=== PATIENT | male | born 1930 | race Caucasian/White ===

== ENCOUNTER 2020-07-17 21:40 | Inpatient (IN) ==
[2020-07-18] MEDS ORDERED: ACETAMINOPHEN 325 MG TABLET PO PRN (00:15)
[2020-07-18] MEDS ORDERED: GLUCAGON 1 MG VIAL IM PRN ×2 (00:15→00:35)
[2020-07-18] MEDS ORDERED: DEXTROSE 50% 25 GM/50 ML VIAL IV PRN ×2 (00:15→00:35)
[2020-07-18] MEDS ORDERED: ONDANSETRON 4 MG/2 ML VIAL IV PRN (00:15)
[2020-07-18] MEDS ORDERED: MORPHINE 4 MG/1 ML VIAL IV PRN (00:19)
[2020-07-18] MEDS: MEROPENEM 500 MG in SODIUM CHLORIDE 0.9% 100 ML IV SCH ×3 (01:42→17:39)
[2020-07-18] MEDS: SODIUM CHLORIDE 0.9% 1,000 ML IV SCH (01:42)
[2020-07-18] MEDS: dilTIAZem Drip 125 MG/125 ML PREMIX IV SCH (06:16)
[2020-07-18 06:17] LABS: Basophils % 0.1 % (0.0-0.8); Hematocrit 38.6 VOL% (42.0-52.0); Hemoglobin 12.3 GM/DL (14.0-18.0); Immature Granulocytes % 0.5 %; Immature Granulocytes Absolute 0.09 #; Lymphocytes # 0.6 10*3/uL (1.4-4.0); Lymphocytes % 3.2 % (21.2-54.2); Mean Corpuscular HGB Conc 31.9 GM/DL (32-36); Mean Corpuscular Volume 85.8 FL (87-102); Mean Platelet Volume 11.1 FL (9.6-12.0); Monocytes % 5.6 % (1.7-12.7); Neutrophils % 90.6 % (38.7-73.9); Platelet Count 133 T/CUMM (130-400); Red Cell Distribution Width 15.5 % (9.3-17.3); White Blood Count 18.3 T/CUMM (4-12)
[2020-07-18 06:25] LABS: PT Patient Result 21.1 SECS (9.8-11.9)
[2020-07-18 06:39] LABS: Risk Ratio 1.8; VLDL CHOLESTEROL 13.2 MG/DL
[2020-07-18 06:40] LABS: Band Neutrophils 6 % (0-10); Hypochromasia 1+; Lymphocytes 4 % (20-55); Microcytosis 1+; Platelet Estimate Adequate; Segmented Neutrophils 81 % (50-85); Total Cells Counted 100
[2020-07-18 06:45] LABS: Albumin 3.3 G/DL (3.4-5.0); Bilirubin,Total 0.4 MG/DL (0.2-1.0); Calcium 8.6 MG/DL (8.5-10.1); Osmolality,Calculated 277.8 MOS/KG (273-304); Total Protein 6.7 G/DL (6.4-8.3)
[2020-07-18] MEDS: INSULIN REGULAR 100 UNIT/ML SUBCUT SCH ×4 (08:52→21:01)
[2020-07-18] MEDS: ATORVASTATIN 40 MG TABLET PO SCH (09:39)
[2020-07-18] MEDS: METOPROLOL SUCCINATE XL 50 MG TABLET PO SCH (09:39)
[2020-07-18] MEDS: TAMSULOSIN 0.4 MG CAPSULE PO SCH (09:39)
[2020-07-18] MEDS: ASPIRIN EC 81 MG TABLET PO SCH (09:39)
[2020-07-18] MEDS: PANTOPRAZOLE 40 MG TABLET PO SCH (09:39)
[2020-07-18] MEDS: WARFARIN 5 MG TABLET PO SCH (17:32)
[2020-07-19] MEDS: MEROPENEM 500 MG in SODIUM CHLORIDE 0.9% 100 ML IV SCH ×3 (03:29→17:42)
[2020-07-19] MEDS: dilTIAZem Drip 125 MG/125 ML PREMIX IV SCH (04:21)
[2020-07-19 05:26] LABS: INR 1.6; PT Patient Result 17.2 SECS (9.8-11.9)
[2020-07-19 05:32] LABS: Calcium 7.2 MG/DL (8.5-10.1)
[2020-07-19 06:16] LABS: Basophils % 0.3 % (0.0-0.8); Eosinophils % 0.1 % (0.00-10.9); Hematocrit 35.2 VOL% (42.0-52.0); Hemoglobin 11.4 GM/DL (14.0-18.0); Immature Granulocytes % 0.3 %; Immature Granulocytes Absolute 0.03 #; Lymphocytes # 0.7 10*3/uL (1.4-4.0); Lymphocytes % 6.5 % (21.2-54.2); Mean Corpuscular HGB Conc 32.4 GM/DL (32-36); Mean Corpuscular Volume 85.2 FL (87-102); Mean Platelet Volume 10.7 FL (9.6-12.0); Monocytes % 12.1 % (1.7-12.7); Neutrophils % 80.7 % (38.7-73.9); Red Blood Count 4.13 MC/CUMM (3.8-5.5); Red Cell Distribution Width 15.7 % (9.3-17.3)
[2020-07-19 06:17] LABS: Platelet Count 100 T/CUMM (130-400); White Blood Count 10.3 T/CUMM (4-12)
[2020-07-19] MEDS ORDERED: POTASSIUM CHLORIDE RIDER 10 MEQ in PREMIX 1 EACH IV SCH (07:30)
[2020-07-19] MEDS ORDERED: POTASSIUM CHLORIDE 20 MEQ TABLET PO ONE (08:40)
[2020-07-19] MEDS: INSULIN REGULAR 100 UNIT/ML SUBCUT SCH ×4 (08:55→22:22)
[2020-07-19] MEDS: LACTATED RINGERS 1,000 ML IV SCH (09:21)
[2020-07-19] MEDS ORDERED: ETOMIDATE 20 MG/10 ML VIAL IV ONE (10:06)
[2020-07-19] MEDS ORDERED: LIDOCAINE 2% 5 ML VIAL ONE (10:06)
[2020-07-19] MEDS: SODIUM CHLORIDE 0.9% 1,000 ML IV SCH ×3 (12:42→16:39)
[2020-07-19] MEDS: ATORVASTATIN 40 MG TABLET PO SCH (12:57)
[2020-07-19] MEDS: ASPIRIN EC 81 MG TABLET PO SCH (12:57)
[2020-07-19] MEDS: PANTOPRAZOLE 40 MG TABLET PO SCH (12:57)
[2020-07-19] MEDS: TAMSULOSIN 0.4 MG CAPSULE PO SCH (12:58)
[2020-07-19] MEDS: METOPROLOL SUCCINATE XL 50 MG TABLET PO SCH (12:58)
[2020-07-20] MEDS: MEROPENEM 500 MG in SODIUM CHLORIDE 0.9% 100 ML IV SCH ×3 (03:30→17:38)
[2020-07-20 06:40] LABS: Basophils % 0.3 % (0.0-0.8); Eosinophils % 0.2 % (0.00-10.9); Hemoglobin 11.4 GM/DL (14.0-18.0); Immature Granulocytes % 0.6 %; Immature Granulocytes Absolute 0.05 #; Lymphocytes # 0.7 10*3/uL (1.4-4.0); Lymphocytes % 7.5 % (21.2-54.2); Mean Corpuscular HGB Conc 32.6 GM/DL (32-36); Mean Corpuscular Volume 84.5 FL (87-102); Mean Platelet Volume 11.4 FL (9.6-12.0); Monocytes % 12.3 % (1.7-12.7); Neutrophils % 79.1 % (38.7-73.9); Platelet Count 108 T/CUMM (130-400); Red Blood Count 4.14 MC/CUMM (3.8-5.5); Red Cell Distribution Width 15.2 % (9.3-17.3); White Blood Count 8.9 T/CUMM (4-12)
[2020-07-20 06:56] LABS: Calcium 8.5 MG/DL (8.5-10.1)
[2020-07-20 07:00] LABS: INR 1.2; PT Patient Result 13.1 SECS (9.8-11.9)
[2020-07-20] MEDS: TAMSULOSIN 0.4 MG CAPSULE PO SCH (09:03)
[2020-07-20] MEDS: PANTOPRAZOLE 40 MG TABLET PO SCH (09:03)
[2020-07-20] MEDS: ASPIRIN EC 81 MG TABLET PO SCH (09:03)
[2020-07-20] MEDS: ATORVASTATIN 40 MG TABLET PO SCH (09:03)
[2020-07-20] MEDS: METOPROLOL SUCCINATE XL 50 MG TABLET PO SCH (09:03)
[2020-07-20] MEDS: SODIUM CHLORIDE 0.9% 1,000 ML IV SCH ×2 (09:09→13:04)
[2020-07-20] MEDS: INSULIN REGULAR 100 UNIT/ML SUBCUT SCH ×4 (09:09→21:00)
[2020-07-20] MEDS: LACTATED RINGERS 1,000 ML IV SCH (09:09)
[2020-07-20] MEDS: WARFARIN 5 MG TABLET PO SCH (17:38)
[2020-07-21] MEDS: MEROPENEM 500 MG in SODIUM CHLORIDE 0.9% 100 ML IV SCH ×3 (02:41→10:27)
[2020-07-21 06:06] LABS: Basophils % 0.4 % (0.0-0.8); Eosinophils # 0.1 10*3/uL (0.0-0.87); Eosinophils % 0.9 % (0.00-10.9); Hematocrit 36.4 VOL% (42.0-52.0); Hemoglobin 11.8 GM/DL (14.0-18.0); Immature Granulocytes % 0.4 %; Immature Granulocytes Absolute 0.03 #; Lymphocytes # 0.7 10*3/uL (1.4-4.0); Lymphocytes % 9.3 % (21.2-54.2); Mean Corpuscular HGB Conc 32.4 GM/DL (32-36); Mean Corpuscular Volume 84.3 FL (87-102); Mean Platelet Volume 11.5 FL (9.6-12.0); Monocytes % 11.1 % (1.7-12.7); Neutrophils % 77.9 % (38.7-73.9); Platelet Count 121 T/CUMM (130-400); Red Blood Count 4.32 MC/CUMM (3.8-5.5); Red Cell Distribution Width 14.9 % (9.3-17.3); White Blood Count 7.8 T/CUMM (4-12)
[2020-07-21 06:40] LABS: Albumin 2.9 G/DL (3.4-5.0); Bilirubin,Total 0.8 MG/DL (0.2-1.0); Calcium 8.3 MG/DL (8.5-10.1); Osmolality,Calculated 279.8 MOS/KG (273-304); Total Protein 6.5 G/DL (6.4-8.3)
[2020-07-21 06:47] LABS: INR 1.1
[2020-07-21 07:34] LABS: Anisocytosis 1+; Platelet Estimate Adequate
[2020-07-21] MEDS: PANTOPRAZOLE 40 MG TABLET PO SCH (08:22)
[2020-07-21] MEDS: METOPROLOL SUCCINATE XL 50 MG TABLET PO SCH (08:22)
[2020-07-21] MEDS: ASPIRIN EC 81 MG TABLET PO SCH (08:22)
[2020-07-21] MEDS: ATORVASTATIN 40 MG TABLET PO SCH (08:22)
[2020-07-21] MEDS: TAMSULOSIN 0.4 MG CAPSULE PO SCH (08:23)
[2020-07-21 08:24] VITALS: BP 150/84
[2020-07-21] MEDS: INSULIN REGULAR 100 UNIT/ML SUBCUT SCH ×2 (08:41→12:35)
[2020-07-21] MEDS: LACTATED RINGERS 1,000 ML IV SCH (08:41)
[2020-07-21] MEDS: SODIUM CHLORIDE 0.9% 1,000 ML IV SCH ×2 (08:41→08:42)
== END 2020-07-21 15:00 | disposition home health service (06) | DRG 871 ==
LOC: EDBD → SUATTDRO 23:29 → N.TELES 23:29 → MERGE 23:29
PROVIDERS: ADMIT Internal Medicine; ATTEND Internal Medicine